=== PATIENT | female | born 1930 | race Caucasian/White ===

== ENCOUNTER 2016-10-08 13:30 | Emergency (ER) | payer OTHER ==
[~2016-10-08] VITALS: Ht 160 cm; Wt 74.4 kg
[2016-10-08 13:30] VITALS: BP 151/76; PULSE 60; RESP 16; TEMP 97.9; O2SAT 99
[~2016-10-08 13:30] MED LIST: ASA81 PO
--- NOTE | 2016-10-08 13:30 | NUR ---
Placed in room 3 . Placed on front desk monitor, blood pressure machine and pulse oximeter. To gown for exam. Side rails up.
--- NOTE | 2016-10-08 13:30 | NUR ---
BIB ALS SQ 64, c/o chest pain, shoulder pain started 4 days ago after vacuuming.pt AAOX4, pleaseant,no distress . pain 02/07. pt took 81mg ASA at home.
--- NOTE | 2016-10-08 13:30 | NUR ---
ER at bedside examining patient.
--- NOTE | 2016-10-08 13:42 | NUR ---
ER at bedside examining patient.
--- NOTE | 2016-10-08 13:46 | NUR ---
# 20 gauge angiocath placed to RFA. Use of asceptic technique. Opsite placed over site. Blood return noted. Blood for lab drawn from site. Flushed with 10 cc of normal saline. No evidence of infiltration noted. Patient tolerated well.
[2016-10-08 14:01] LABS: BASOPHILS % (AUTO) 0.6 % (0.0-2.0); HEMATOCRIT 35.8 % (36-48); HEMOGLOBIN 11.8 g/dL (12.0-16.0); LYMPHOCYTES # (AUTO) 1.2 K/uL (1.0-5.5); LYMPHOCYTES % (AUTO) 26.4 % (20.5-51.5); MEAN CORPUSCULAR HEMOGLOBIN 31 pg (27-31); MEAN CORPUSCULAR HGB CONC 33 % (32-36); MEAN CORPUSCULAR VOLUME 93 fL (79.0-98.0); MONOCYTES # (AUTO) 0.5 K/uL (0.0-1.0); MONOCYTES % (AUTO) 11.4 % (1.7-9.3); NEUTROPHILS % (AUTO) 60.6 % (40.0-70.0); PLATELET COUNT (AUTO) 152 K/uL (130-430); RED BLOOD CELL COUNT(AUTO) 3.85 MIL/uL (4.2-6.2); RED CELL DISTRIBUTION WIDTH 13.7 % (9.0-15.0); WHITE BLOOD COUNT (AUTO) 4.7 K/uL (4.8-10.8)
[2016-10-08 14:05] LABS: ANION GAP 6 (5-15); CALCIUM 9.2 mg/dL (8.4-11.0); CHLORIDE 108 mmol/L (98-107); CREATININE 0.58 mg/dL (0.55-1.30); GLUCOSE 87 mg/dL (70-99); POTASSIUM 3.8 mmol/L (3.5-5.1); SODIUM SERUM 140 mmol/L (136-145); UREA NITROGEN, BLOOD 15 mg/dL (8-21)
[2016-10-08 14:09] LABS: ALANINE AMINOTRANSFERASE 24 U/L (12-78); ALBUMIN 3.8 g/dL (3.4-4.8); ASPARTATE AMINOTRANSFERASE 21 U/L (10-37); CREATINE KINASE, TOTAL 44 U/L (26-192); TOTAL BILIRUBIN 0.6 mg/dL (0.0-1.0); TOTAL PROTEIN, SERUM 7.1 g/dL (6.4-8.3)
[2016-10-08 14:10] LABS: PROTHROMBIN TIME 11.2 SECS (9.5-12.5)
--- NOTE | 2016-10-08 14:30 | NUR ---
assits pt to the restroom.urine collected.
[2016-10-08 14:55] LABS: BILIRUBIN,URINE NEGATIVE (NEGATIVE); CLARITY/URINE CLEAR (CLEAR); COLOR,URINE YELLOW (YELLOW); GLUCOSE,URINE NEGATIVE (NEGATIVE); KETONES,URINE NEGATIVE (NEGATIVE); LEUKOCYTE ESTERASE ,URINE 1+ (NEGATIVE); NITRITE, URINE NEGATIVE (NEGATIVE); PROTEIN URINE NEGATIVE (NEGATIVE); UROBILINOGEN,URINE 0.2 (0.2-1.0)
[2016-10-08 14:59] LABS: BLOOD, URINE TRACE (NEGATIVE)
[2016-10-08 15:15] LABS: BACTERIA,URINE RARE /HPF (None Seen)
[2016-10-08] MEDS ORDERED: cefTRIAXone 1 GM IVPB PREMIX 50 ML IV ONE (15:45)
[2016-10-08] MEDS ORDERED: ASA81 PO (15:51)
--- NOTE | 2016-10-08 16:03 | NUR ---
resting in bed,no distress
--- NOTE | 2016-10-08 16:14 | NUR ---
rocephin IVPB completed. no adverse reation.
--- NOTE | 2016-10-08 16:45 | NUR ---
Dr morgan at bedside examing pt.
--- NOTE | 2016-10-08 17:00 | NUR ---
pt able to ambulate with her own cruches without difficulty.gaits are steady
--- NOTE | 2016-10-08 17:37 | NUR ---
Patient given written and verbal discharge instructions and verbalizes understanding. ER MD discussed with patient the results and treatment provided. Given copies of tests performed in ER. Patient in stable condition. ID arm band removed. IV catheter removed intact and dressing applied, no active bleeding. Rx of KEFLEX given. Patient educated on pain management and to follow up with PMD. Pain Scale . Opportunity for questions provided and answered.
[2016-10-08 17:42] VITALS: BP 146/72; PULSE 54; RESP 17; TEMP 97.9; O2SAT 99
--- NOTE | 2016-10-11 08:52 | NUR ---
RECEIVED FINAL URINE CULTURE, PT WAS GIVEN ANTIBIOTICS THAT PT WAS SENSITIVE TO. NO FURTHER ACTIONS NEEDED.
== END 2016-10-08 17:38 | disposition home or self-care (01) ==
LOC: SED 13:30
DX: N39.0 Urinary tract infection, site not specified (principal)
CPT/HCPCS: 36415; 71010; 80053; 81000; 82550; 83605; 83880; 84443; 84484; 85025; 85610; 85730; 87040; 87086; 87186; 93005; 96365; 99285; J0696

== ENCOUNTER 2016-10-14 16:56 | Inpatient (IN) | payer OTHER ==
[~2016-10-14] VITALS: Ht 170.2 cm; Wt 78.9 kg
--- NOTE | 2016-10-14 15:38 | NUR ---
Admission Note Received patient from ER with diagnosis of ALOC, HALLUCINATION. Initial Plan of Care discussed-patient verbalized understanding. Family at bedside. Oriented to room, call light, pain management and safety.
--- NOTE | 2016-10-14 16:56 | NUR ---
Placed in room 1 . Placed on cardiac exercise specialist, blood pressure machine and pulse oximeter. To gown for exam. Side rails up. Report given to Claudia.
--- NOTE | 2016-10-14 16:56 | NUR ---
ER at bedside examining patient.
--- NOTE | 2016-10-14 17:00 | NUR ---
PT. TO THE ER AAOx4 BROUGHT IN VIA EMS, PER EMS PT. CALLED 911 MAKING SOME STATEMENT ABOUT HER DOGS AND HOME SITUATION, PT. STATES NO COMPLAINTS, ABLE TO FOLLOW COMMANDS, ABLE TO COMMUNICATE WELL WITH SCATTERED THOUGHTS, CLEAR SPEECH, NO DISTRESS NOTED
[2016-10-14 17:14] VITALS: BP 137/63; PULSE 68; RESP 15; TEMP 98; O2SAT 100
--- NOTE | 2016-10-14 17:15 | NUR ---
# 22 gauge angiocath placed to LAC. Use of asceptic technique. Opsite placed over site. Blood return noted. Flushed with 10 cc of normal saline. No evidence of infiltration noted. Patient tolerated well.
--- NOTE | 2016-10-14 17:26 | NUR ---
Spoke with Dr. Wilson' PA who stated pt has history, spinal tumor, 2 months ago orbital fx information relayed to Dr. Lew and Primary nurse
[2016-10-14 17:33] LABS: BASOPHILS % (AUTO) 0.2 % (0.0-2.0); EOSINOPHILS % (AUTO) 0.5 % (0.0-4.0); HEMOGLOBIN 12.1 g/dL (12.0-16.0); LYMPHOCYTES # (AUTO) 0.8 K/uL (1.0-5.5); LYMPHOCYTES % (AUTO) 10.4 % (20.5-51.5); MEAN CORPUSCULAR HEMOGLOBIN 30 pg (27-31); MEAN CORPUSCULAR HGB CONC 33 % (32-36); MEAN CORPUSCULAR VOLUME 91 fL (79.0-98.0); MONOCYTES # (AUTO) 0.6 K/uL (0.0-1.0); MONOCYTES % (AUTO) 7.2 % (1.7-9.3); NEUTROPHILS # (AUTO) 6.7 K/uL (1.8-7.7); NEUTROPHILS % (AUTO) 81.7 % (40.0-70.0); PLATELET COUNT (AUTO) 209 K/uL (130-430); RED BLOOD CELL COUNT(AUTO) 4.08 MIL/uL (4.2-6.2); RED CELL DISTRIBUTION WIDTH 12.8 % (9.0-15.0); WHITE BLOOD COUNT (AUTO) 8.1 K/uL (4.8-10.8)
[2016-10-14 17:44] LABS: ANION GAP 16 (5-15); CALCIUM 9.4 mg/dL (8.4-11.0); CHLORIDE 104 mmol/L (98-107); CREATININE 0.56 mg/dL (0.55-1.30); GLUCOSE 81 mg/dL (70-99); POTASSIUM 3.3 mmol/L (3.5-5.1); SODIUM SERUM 142 mmol/L (136-145); UREA NITROGEN, BLOOD 13 mg/dL (8-21)
[2016-10-14 17:49] LABS: ALANINE AMINOTRANSFERASE 50 U/L (12-78); ALBUMIN 3.8 g/dL (3.4-4.8); ASPARTATE AMINOTRANSFERASE 88 U/L (10-37); TOTAL BILIRUBIN 0.8 mg/dL (0.0-1.0); TOTAL PROTEIN, SERUM 7.7 g/dL (6.4-8.3)
[2016-10-14 17:50] LABS: ALCOHOL, BLOOD < 3 mg/dL (<10); INR 1.1 (0.8-1.2); PROTHROMBIN TIME 11.8 SECS (9.5-12.5)
--- NOTE | 2016-10-14 18:00 | NUR ---
# 14 FR In and Out catheter with use of sterile technique. Immediate return of 200 ml YELLOW urine noted. Urine sample collected and sent to lab. Pt tolerated procedure WELL.
[2016-10-14 18:06] LABS: ACETAMINOPHEN < 1 ug/mL (1-30); SALICYLATE 1 mg/dL (3-30)
[2016-10-14 18:42] LABS: BILIRUBIN,URINE 1+ (NEGATIVE); BLOOD, URINE 1+ (NEGATIVE); CLARITY/URINE CLEAR (CLEAR); COLOR,URINE YELLOW (YELLOW); GLUCOSE,URINE NEGATIVE (NEGATIVE); KETONES,URINE 3+ (NEGATIVE); LEUKOCYTE ESTERASE ,URINE NEGATIVE (NEGATIVE); NITRITE, URINE NEGATIVE (NEGATIVE); PH,URINE 5.5 (5.0-8.0); PROTEIN URINE 1+ (NEGATIVE)
--- NOTE | 2016-10-14 18:49 | NUR ---
PT. OUT TO RADIOLOGY [facility]IA [facility] WITH NIL[facility]
--- NOTE | 2016-10-14 18:50 | NUR ---
ANDREW FROM [facility] CALLED STATED TO LET PT. KNOW PT.'S DOGS ARE WITH HER LEFT PHONE NUMBER [phone]
[2016-10-14 18:52] LABS: BARBITURATE, URINE NEGATIVE (NEG <=200); BENZODIAZEPINE, URINE NEGATIVE (NEG <=150); CANNABINOID, URINE NEGATIVE (NEG <=50); COCAINE, URINE NEGATIVE (NEG <=150); METHAMPHETAMINES SCREEN,URINE NEGATIVE (NEG <=500); OPIATE, URINE NEGATIVE (NEG <=100); PHENCYCLIDINE SCREEN,URINE NEGATIVE (NEG <=25); UR TRICYCLIC ANTIDEPRESSANTS NEGATIVE (NEG <=300); URINE AMPHETAMINE NEGATIVE (NEG <=500); URINE METHADONE NEGATIVE (NEG <=200); URINE OXYCODONE SCREEN NEGATIVE (NEG <=100); URINE PROPOXYPHENE SCREEN NEGATIVE (NEG <=300)
[2016-10-14 18:56] LABS: BACTERIA,URINE RARE /HPF (None Seen); WBC,URINE 0-3 /HPF (0-3)
[2016-10-14 18:57] LABS: URINE AMORPHOUS URATE 1+ /HPF (None Seen)
--- NOTE | 2016-10-14 19:01 | NUR ---
PT. BACK FROM RADIOLOGY [facility]IA [facility]
--- NOTE | 2016-10-14 20:00 | NUR ---
Patient will be admitted to care of DR. MCHUGH. Admitted to MEDSURG unit. Will go to room 135. Summary report printed. Report given to KORY GONZALES.
--- NOTE | 2016-10-14 20:10 | NUR ---
CONSULTATION PAGED REASON FOR CONSULTATION:ALOC WAS CONSULT CALLED?Y PERSON WHO WAS NOTIFIED:AGUEDA CONSULTING PHYSICIAN:BERENICE BERNAL SANITIZER SPECIALTY:NEURO SANITIZER PHONE NUMBER:[phone]
[2016-10-14 20:15] VITALS: BP 132/64; PULSE 70; RESP 18; TEMP 97; O2SAT 96
--- NOTE | 2016-10-14 21:00 | NUR ---
initial nursing notes: Patient is awake. Patient has episodes of forgetfulness. Reoriented patient as needed. Patient has an IV access on the left forearm. Patient has redness, abrasion and dry scab on bilateral elbows and around the eyes. Encouraged patient to use call light when getting out of the bed. Patient demonstrated proper use of call light.
[2016-10-14 21:11] VITALS: BP 134/72; PULSE 71; RESP 16; TEMP 97.9; O2SAT 99
--- NOTE | 2016-10-14 21:50 | NUR ---
CONSULTATION PAGED REASON FOR CONSULTATION:ALOC, HALLUCINATION WAS CONSULT CALLED?Y PERSON WHO WAS NOTIFIED:AGUEDA CONSULTING PHYSICIAN:,SAID JAVA DEVELOPER CONSULTANT SPECIALTY:PSYCH JAVA DEVELOPER CONSULTANT PHONE NUMBER:[phone]
--- NOTE | 2016-10-14 23:00 | NUR ---
nursing rounds: Patient ate dinner. No difficulty in swallowing noted.
[2016-10-15] VITALS (11 sets, daily range): BP systolic 87–131; BP diastolic 42–62; PULSE 60–75; RESP 16–20; TEMP 97.2–99; O2SAT 94–100
--- NOTE | 2016-10-15 01:00 | NUR ---
nursing rounds: Patient is asleep. Patient has no shortness of breath.
--- NOTE | 2016-10-15 03:00 | NUR ---
nursing rounds: Patient calmly resting in bed. Patient has no respiratory distress.
--- NOTE | 2016-10-15 05:00 | NUR ---
nursing rounds: Patient calmly resting in bed. Call light within patient's reach.
--- NOTE | 2016-10-15 07:33 | NUR ---
Nutrition Update Saeid Scale 15 noted. Pt admitted for ALOC, hallucination. Diet: 2 gm Na BMI: 27.3 kg/m2 RD to follow per nutrition care standards.
--- NOTE | 2016-10-15 07:40 | NUR ---
closing nursing notes: Patient is awake, alert and oriented to name and place. Patient is in no acute respiratory distress. No episodes of fall and no injuries throughout the brake tester. Provided nursing report to incoming morning shift nurse, CHRISTIAN Javed, at patient's bedside.
--- NOTE | 2016-10-15 07:45 | NUR ---
am rounds change of shift, awake, alert, oriented to room and date, instructed on use of call light and bed control. denies any discomfort at this time.on fall risk, bed alarm on.
--- NOTE | 2016-10-15 08:00 | NUR ---
schedule for MRI of the head, went over checklist and signed. sat up for breakfast.needs attended.
[2016-10-15] MEDS: ASPIRIN 81 MG TAB.CHEW PO SCH (09:18)
[2016-10-15] MEDS: QUEtiapine FUMARATE 25 MG TABLET PO SCH ×2 (09:20→14:59)
--- NOTE | 2016-10-15 10:12 | NUR ---
Notes Patient's lens implant identification card has been copied and placed in chart. dietetic technician registered has been informed.
[2016-10-15] MEDS ORDERED: GADOPENTETATE DIMEGLUMINE 15 ML VIAL IV ONE (10:38)
--- NOTE | 2016-10-15 10:39 | NUR ---
Notes Patient taken to MRI. No acute distress noted.
--- NOTE | 2016-10-15 11:35 | NUR ---
ROUNDS: PT. CAME BACK FROM MRI, AWAKE, ALERT. DENIES ANY PAIN.
--- NOTE | 2016-10-15 13:33 | NUR ---
Notes Dr. Mac has seen patient. Plan of care reviewed. No acute distress noted at this time.
--- NOTE | 2016-10-15 14:50 | NUR ---
NOTES: pt.sleeping and awakened for due med.
--- NOTE | 2016-10-15 14:52 | NUR ---
Notes Encouraged patient to continue high oral intake of fluids in order to flush out contrast used for MRI. Patient acknowledged understanding
--- NOTE | 2016-10-15 16:46 | NUR ---
N ot Addendum: 10/15/16 at 1647 by Tello Webber RN Entered in error
--- NOTE | 2016-10-15 16:47 | NUR ---
Notes Dr. Mac has been paged to inform of low blood pressure.
--- NOTE | 2016-10-15 18:14 | NUR ---
Notes Dr. Mac has been paged a second time to inform of blood pressure.
--- NOTE | 2016-10-15 18:22 | NUR ---
paged for Dr Mac, dialed . s/w Krzysztof.
--- NOTE | 2016-10-15 18:40 | NUR ---
NOTES: Dr. Dunlap called back and spoke to nurse Javed and informed MD about the low blood pressure with orders , will give IV NS 500 ml bolus and will place on telemetry. pt. informed.
--- NOTE | 2016-10-15 18:50 | NUR ---
CLOSING NOTES: placed on monitor and storage bin tender and shows sinus rhythm.IV bolus of NS infusing.continue to monitor BP. Latest BP 90/43 hr 74.
--- NOTE | 2016-10-15 18:50 | NUR ---
Notes Spoke with Dr. Mac, informed him of low blood pressure. TO for Normal Saline 500 ml Bolus IV and change patient to Telemetry given. Patient continues to asymptomatic, responds appropriately to questions, no change in status from this morning. Will continue to monitor until patient care is endorsed to oncoming shift nurse.
[2016-10-15] MEDS ORDERED: NS 500 ML IV ONE ×2 (19:00→20:45)
--- NOTE | 2016-10-15 19:15 | NUR ---
NOTES: endorsed pt. to incoming nurse Rosa Maria.continue to observe and monitor BP.
--- NOTE | 2016-10-15 19:40 | NUR ---
INITIAL NOTE PT. RECEIVED AAOX3. NO S.S OF SOB OR DISTRESS. SINUS RHYTHM SHOWS ON THE MONITOR. BP IS LOW, 92/42, IV BOLUS INFUSING AT THIS TIME ORDERED TO ELEVATE BP. IV ACCESS TO LFA. NO REDNESS OR SWELLING AT THE SITE. PLAN OF CARE DISCUSSED WITH PT., VERBALIZES UNDERSTANDING. WILL CONTINUE TO MONITOR FOR ANY CHANGES. SAFETY AND FALL PRECAUTIONS IN PLACE. CALL LIGHT IN REACH, BED ALARM ON.
--- NOTE | 2016-10-15 20:30 | NUR ---
paged for Dr Mac, dialed . s/w Satnam.
--- NOTE | 2016-10-15 20:31 | NUR ---
MD CALL PAGED DR. ERAZO TO INFORM HIM THAT PT. BP REMAINS LOW (81/64) FOLLOWING BOLUS AND PLACING PT. IN TRENDELENBERG POSITION. PT. IS SLEEPING AT THIS TIME. DR. ERAZO GAVE ORDERS TO INFUSE ANOTHER 1/2 LITER AND OBTAIN AN ECHO. WILL CARRY OUT.
[2016-10-15] MEDS ORDERED: QUEtiapine FUMARATE 25 MG TABLET PO SCH (21:00)
--- NOTE | 2016-10-15 22:05 | NUR ---
ROUNDS ASSISTED PT. TO USE THE BEDPAN. NO S/S OF SOB OR DISTRESS. PT. DENIES PAIN AT THIS TIME. BLOOD PRESSURE WITHIN NORMAL RANGE FOLLOWING ADMINISTRATION OF SECOND IV BOLUS. WILL CONTINUE TO MONITOR FOR ANY CHANGES. SAFETY AND FALL PRECAUTIONS IN PLACE. CALL LIGHT IN REACH, BED ALARM ON.
[2016-10-16] VITALS (7 sets, daily range): BP systolic 104–140; BP diastolic 54–81; PULSE 66–75; RESP 18–20; TEMP 97.9–99; O2SAT 96–100
--- NOTE | 2016-10-16 00:10 | NUR ---
ROUNDS PT. RESTING IN BED WITH EYES CLOSED. CHEST RISE AND FALL NOTED. NO S/S OF SOB OR DISTRESS NOTED. NO FACIAL GRIMACING INDICATING PAIN. PT. TO REMAIN NPO PAST MIDNIGHT FOR ABDOMINAL ULTRASOUND IN AM. WILL CONTINUE TO MONITOR FOR ANY CHANGES. SAFETY AND FALL PRECAUTIONS IN PLACE, CALL LIGHT IN REACH.
--- NOTE | 2016-10-16 02:02 | NUR ---
ROUNDS PT. RESTING IN BED WITH EYES CLOSED. CHEST RISE AND FALL NOTED. NO S/S OF SOB OR DISTRESS NOTED. NO FACIAL GRIMACING INDICATING ANY PAIN. WILL CONTINUE TO MONITOR FOR ANY CHANGES. SAFETY AND FALL PRECAUTIONS IN PLACE. CALL LIGHT IN REACH, BED ALARM ON.
--- NOTE | 2016-10-16 06:28 | NUR ---
CLOSING NOTE PT. IS RESTING IN BED WITH EYES CLOSED, CHEST RISE AND FALL NOTED. NO S/S OF SOB OR DISTRESS, NO FACIAL GRIMACING INDICATING PAIN. PT. BP REMAINED STABLE FOLLOWING IV BOLUS. NPO STATUS MAINTAINED PAST MIDNIGHT FOR ABDOMINAL ULTRASOUND. SAFETY AND FALL PRECAUTIONS WERE MAINTAINED. WILL ENDORSE CARE TO AM NURSE. CALL LIGHT IN REACH, BED ALARM ON.
--- NOTE | 2016-10-16 08:00 | NUR ---
AM NOTES: RECEIVED PT AT 0725, AWAKE/ALERT, TALKING TO HERSELF, ON ROOM, ORIENTED TO HERSELF, ON NSR, VOIDS, NPO FOR U/S ABDOMEN, TO CONTINUE TO MONITOR CLOSELY.
[2016-10-16] MEDS: ASPIRIN 81 MG TAB.CHEW PO SCH (09:13)
[2016-10-16] MEDS: QUEtiapine FUMARATE 25 MG TABLET PO SCH ×2 (09:14→14:19)
--- NOTE | 2016-10-16 10:00 | NUR ---
NURSE: PT WAS SEEN BY DR ERAZO THIS AM, DOWNGRADED HER TO MED-SURG, TO CONTINUE TO MONITOR.
--- NOTE | 2016-10-16 12:00 | NUR ---
NURSE; RESUMED DIET FOR THE PT.
--- NOTE | 2016-10-16 14:40 | NUR ---
NURSE: DR DWYER SAID IT IS OK FOR HIM TO DISCHARGE THE PT, WE CALLED DR ERAZO AND HE ORDERED THAT THE PT CAN BE DISCHARGE TO A SNF, CALLED FRANCISCO J HER NIECE AND INFORMED HER ABOUT THE DISCHARGED, PT IS ALSO AGREEABLE WITH THE DISCHARGE, I ASK HER ABOUT HER SON, SHE SAID NOT TO CALL HER SON TO TELL ABOUT HER SITUATION.
--- NOTE | 2016-10-16 14:50 | NUR ---
NURSE: MISS HERNANDEZ, WHO WAS IN THE PT'S FACE SHEET WAS AT BEDSIDE, SHE IS AWARE OF THE TRANSFER.
--- NOTE | 2016-10-16 18:00 | NUR ---
NURSE: PT IS FOR DISCHARGE TO [place], REPORT WAS GIVEN TO RN CARLITOS, AMBULANCE REGISTRY NP TIME IS AT 1944.
--- NOTE | 2016-10-16 20:17 | NUR ---
Discharge Information Discharge information and paperwork reviewed and discussed with conservator at bedside Lizzie Renee. All paperwork signed, and acknowledged. VSS: Temp 99.0, BP 120/67, Heart rate 75, O2 saturation 98% on room air, O/10 pain level. Pt is in stable condition upon discharge, and is cooperative. Informed conservator to make appointment to see Neurologist Brian and phone number was provided and highlighted in discharge packet. IV discontinues, and ID arm band. [facility] with pt at this time, vitals provided, report given. All needs met. Belongings list completed, and all belongings sent with patients kunal Samuel. Addendum: 10/16/16 at 2106 by Gabrielle Castillo LVN IV discontinued and ID arm band
== END 2016-10-16 20:27 | DRG 885 ==
LOC: SED 16:56 → SMU 19:40 → OBSVTOIN 19:40 → SMU 20:00 → STU 10-15 23:19 → SMU 10-16 11:16
PROVIDERS: ATTEND Internal Medicine Hospice and Palliative Medicine
DX: F23 Brief psychotic disorder (principal); G93.41 Metabolic encephalopathy; F30.9 Manic episode, unspecified; M19.90 Unspecified osteoarthritis, unspecified site; Z79.899 Other long term (current) drug therapy; Z87.820 Personal history of traumatic brain injury; Z88.6 Allergy status to analgesic agent
CPT/HCPCS: 36415; 70450-TC; 70553; 71010; 76700-TC; 80053; 80307; 81000-TC; 82607; 84443-TC; 84484; 85025; 85610-TC; 85730-TC; 93005; 93306; 99285; A9579; G0480; G0481; G0482; J7040

== ENCOUNTER 2020-09-22 15:07 | Inpatient (IN) | payer OTHER, SELFPAY ==
[~2020-09-22] VITALS: Ht 157.5 cm; Wt 64.0 kg
[2020-09-22 15:11] VITALS: BP_SYST 126
[2020-09-22] MEDS ORDERED: SIMV20TA2 PO (15:12)
[2020-09-22] MEDS ORDERED: ASPI-1155 PO (15:12)
[2020-09-22] MEDS ORDERED: POLY17PO4 PO (15:12)
[2020-09-22] MEDS ORDERED: DOCU-144 PO (15:12)
[2020-09-22] MEDS ORDERED: FURO-150 PO (15:12)
[2020-09-22] MEDS ORDERED: PRO40 PO (15:12)
[2020-09-22 16:20] LABS: BASOPHILS % (AUTO) 0.7 % (0.0-2.0); EOSINOPHILS # (AUTO) 0.1 K/uL (0.0-0.4); EOSINOPHILS % (AUTO) 2.1 % (0.0-4.0); HEMATOCRIT 32.6 % (36-48); HEMOGLOBIN 10.9 g/dL (12.0-16.0); LYMPHOCYTES # (AUTO) 1.1 K/uL (1.0-5.5); LYMPHOCYTES % (AUTO) 18.5 % (20.5-51.5); MEAN CORPUSCULAR HEMOGLOBIN 30 pg (27-31); MEAN CORPUSCULAR HGB CONC 34 % (32-36); MEAN CORPUSCULAR VOLUME 91 fL (79.0-98.0); MONOCYTES # (AUTO) 0.6 K/uL (0.0-1.0); MONOCYTES % (AUTO) 9.5 % (1.7-9.3); NEUTROPHILS # (AUTO) 4.2 K/uL (1.8-7.7); NEUTROPHILS % (AUTO) 69.2 % (40.0-70.0); PLATELET COUNT (AUTO) 194 K/uL (130-430)
[2020-09-22 16:36] LABS: ANION GAP 2 (5-15); CALCIUM 9.5 mg/dL (8.4-11.0); CHLORIDE 107 mmol/L (98-107); CREATININE 0.73 mg/dL (0.55-1.30); GLUCOSE 100 mg/dL (70-99); POTASSIUM 4.5 mmol/L (3.5-5.1); SODIUM SERUM 141 mmol/L (136-145); UREA NITROGEN, BLOOD 20 mg/dL (8-21)
[2020-09-22 16:47] LABS: ALANINE AMINOTRANSFERASE 37 U/L (12-78); ALBUMIN 2.8 g/dL (3.4-4.8); ASPARTATE AMINOTRANSFERASE 28 U/L (10-37); TOTAL BILIRUBIN 0.3 mg/dL (0.0-1.0)
[2020-09-22 16:58] LABS: BILIRUBIN,URINE NEGATIVE (NEGATIVE); BLOOD, URINE TRACE (NEGATIVE); CLARITY/URINE SL CLOUDY (CLEAR); COLOR,URINE YELLOW (YELLOW); GLUCOSE,URINE NEGATIVE (NEGATIVE); KETONES,URINE NEGATIVE (NEGATIVE); LEUKOCYTE ESTERASE ,URINE 3+ (NEGATIVE); NITRITE, URINE POSITIVE (NEGATIVE); PH,URINE 7.5 (5.0-8.0); PROTEIN URINE NEGATIVE (NEGATIVE); UROBILINOGEN,URINE 0.2 (0.2-1.0)
[2020-09-22 17:10] LABS: BACTERIA,URINE MANY /HPF (None Seen); WBC,URINE >100 /HPF (0-3)
[2020-09-22 17:11] LABS: MUCUS,URINE None Seen /LPF (None Seen); URINE AMORPHOUS PHOSPHATES 1+ /HPF (None Seen)
[2020-09-22 17:13] LABS: PROTHROMBIN TIME 10.4 SECS (9.5-12.5)
[2020-09-22] MEDS ORDERED: ACETAMINOPHEN 325 MG TABLET PO PRN ×2 (17:15→21:30)
[2020-09-22] MEDS ORDERED: MORPHINE 2 MG/ML INJ. SYRINGE IVP PRN (17:15)
[2020-09-22 18:09] VITALS: BP_SYST 169
[2020-09-22 19:00] VITALS: BP_SYST 131
[2020-09-22 20:00] VITALS: BP_SYST 131
[2020-09-22] MEDS ORDERED: LORazepam 2 MG/ML VIAL IVP PRN (21:30)
[2020-09-22] MEDS ORDERED: ONDANSETRON HCL 4 MG/2 ML VIAL IVP PRN (21:30)
[2020-09-22] MEDS: NORMAL SALINE 5 ML DISP.SYRIN IVF SCH (22:30)
[2020-09-23] VITALS: BP_SYST 97
[2020-09-23 06:35] LABS: BASOPHILS % (AUTO) 0.9 % (0.0-2.0); EOSINOPHILS # (AUTO) 0.1 K/uL (0.0-0.4); EOSINOPHILS % (AUTO) 1.9 % (0.0-4.0); HEMATOCRIT 29.7 % (36-48); HEMOGLOBIN 9.9 g/dL (12.0-16.0); LYMPHOCYTES # (AUTO) 1.4 K/uL (1.0-5.5); LYMPHOCYTES % (AUTO) 25.5 % (20.5-51.5); MEAN CORPUSCULAR HEMOGLOBIN 30 pg (27-31); MEAN CORPUSCULAR HGB CONC 33 % (32-36); MEAN CORPUSCULAR VOLUME 91 fL (79.0-98.0); MONOCYTES # (AUTO) 0.6 K/uL (0.0-1.0); NEUTROPHILS # (AUTO) 3.3 K/uL (1.8-7.7); NEUTROPHILS % (AUTO) 60.7 % (40.0-70.0); PLATELET COUNT (AUTO) 170 K/uL (130-430); RED BLOOD CELL COUNT(AUTO) 3.27 MIL/uL (4.2-6.2); RED CELL DISTRIBUTION WIDTH 15.1 % (9.0-15.0); WHITE BLOOD COUNT (AUTO) 5.5 K/uL (4.8-10.8)
[2020-09-23 06:49] LABS: ANION GAP 7 (5-15); CALCIUM 8.6 mg/dL (8.4-11.0); CHLORIDE 109 mmol/L (98-107); CREATININE 0.56 mg/dL (0.55-1.30); GLUCOSE 85 mg/dL (70-99); POTASSIUM 4.1 mmol/L (3.5-5.1); SODIUM SERUM 142 mmol/L (136-145); UREA NITROGEN, BLOOD 15 mg/dL (8-21)
[2020-09-23] MEDS: NORMAL SALINE 5 ML DISP.SYRIN IVF SCH ×3 (06:54→22:46)
[2020-09-23 08:00] VITALS: BP_SYST 95
[2020-09-23] MEDS: DOCUSATE SODIUM 100 MG CAPSULE PO SCH ×2 (08:37→22:45)
[2020-09-23] MEDS: PANTOPRAZOLE SODIUM 40 MG TAB PO SCH (08:37)
[2020-09-23] MEDS: ASPIRIN 81 MG TAB.CHEW PO SCH (08:38)
[2020-09-23] MEDS: FUROSEMIDE 20 MG TABLET PO SCH (08:38)
[2020-09-23] MEDS: ENOXAPARIN SODIUM 30 MG/0.3 ML SYRINGE SUBCUT SCH (08:40)
[2020-09-23] MEDS: POLYETHYLENE GLYCOL 3350, 17 GM/ POWD.PACK PO SCH (08:41)
[2020-09-23] MEDS: D5NS 1,000 ML IV SCH (11:55)
[2020-09-23] MEDS: CIPROFLOXACIN HCL 500 MG TABLET PO SCH ×2 (12:03→22:45)
[2020-09-23 12:27] VITALS: BP_SYST 91
[2020-09-23 16:55] VITALS: BP_SYST 96
[2020-09-23 20:00] VITALS: BP_SYST 94
[2020-09-23] MEDS: SIMVASTATIN 20 MG TABLET PO SCH (22:46)
[2020-09-24 01:28] VITALS: BP_SYST 94
[2020-09-24] MEDS: D5NS 1,000 ML IV SCH ×2 (04:04→23:05)
[2020-09-24] MEDS: NORMAL SALINE 5 ML DISP.SYRIN IVF SCH ×3 (05:07→22:00)
[2020-09-24 06:37] LABS: BASOPHILS % (AUTO) 0.6 % (0.0-2.0); EOSINOPHILS # (AUTO) 0.1 K/uL (0.0-0.4); EOSINOPHILS % (AUTO) 2.1 % (0.0-4.0); HEMOGLOBIN 9.7 g/dL (12.0-16.0); LYMPHOCYTES # (AUTO) 1.4 K/uL (1.0-5.5); LYMPHOCYTES % (AUTO) 21.8 % (20.5-51.5); MEAN CORPUSCULAR HEMOGLOBIN 31 pg (27-31); MEAN CORPUSCULAR HGB CONC 34 % (32-36); MEAN CORPUSCULAR VOLUME 91 fL (79.0-98.0); MONOCYTES # (AUTO) 0.8 K/uL (0.0-1.0); MONOCYTES % (AUTO) 13.5 % (1.7-9.3); NEUTROPHILS # (AUTO) 3.9 K/uL (1.8-7.7); PLATELET COUNT (AUTO) 141 K/uL (130-430); RED BLOOD CELL COUNT(AUTO) 3.17 MIL/uL (4.2-6.2); RED CELL DISTRIBUTION WIDTH 15.2 % (9.0-15.0); WHITE BLOOD COUNT (AUTO) 6.2 K/uL (4.8-10.8)
[2020-09-24 06:44] LABS: CALCIUM 8.3 mg/dL (8.4-11.0); CHLORIDE 109 mmol/L (98-107); CREATININE 0.62 mg/dL (0.55-1.30); GLUCOSE 105 mg/dL (70-99); POTASSIUM 4.1 mmol/L (3.5-5.1); SODIUM SERUM 140 mmol/L (136-145); UREA NITROGEN, BLOOD 15 mg/dL (8-21)
[2020-09-24 07:06] LABS: ANION GAP 4 (5-15)
[2020-09-24 07:59] LABS: ERYTHROCYTE SEDIMENTATION RATE 62 MM/HR (0-20)
[2020-09-24 08:13] VITALS: BP_SYST 120
[2020-09-24] MEDS: DOCUSATE SODIUM 100 MG CAPSULE PO SCH ×2 (08:27→23:03)
[2020-09-24] MEDS: ASPIRIN 81 MG TAB.CHEW PO SCH (08:27)
[2020-09-24] MEDS: PANTOPRAZOLE SODIUM 40 MG TAB PO SCH (08:28)
[2020-09-24] MEDS: FUROSEMIDE 20 MG TABLET PO SCH (08:28)
[2020-09-24] MEDS: POLYETHYLENE GLYCOL 3350, 17 GM/ POWD.PACK PO SCH (08:28)
[2020-09-24] MEDS: CIPROFLOXACIN HCL 500 MG TABLET PO SCH ×2 (08:30→23:03)
[2020-09-24] MEDS: ENOXAPARIN SODIUM 30 MG/0.3 ML SYRINGE SUBCUT SCH (08:30)
[2020-09-24 09:07] LABS: INR 1.1 (0.8-1.2); PROTHROMBIN TIME 10.8 SECS (9.5-12.5)
[2020-09-24 12:23] VITALS: BP_SYST 108
[2020-09-24] MEDS ORDERED: POLYMYXIN 500,000/BACIT.10,000 UNITS in NS IRR 1 L IR ONE (13:50)
[2020-09-24] MEDS ORDERED: ONDANSETRON HCL 4 MG/2 ML VIAL IVP PRN (15:00)
[2020-09-24 16:00] VITALS: BP_SYST 101
[2020-09-24 19:00] VITALS: BP_SYST 120
[2020-09-24] MEDS: SIMVASTATIN 20 MG TABLET PO SCH (23:03)
[2020-09-25 01:05] VITALS: BP_SYST 105
[2020-09-25] MEDS: NORMAL SALINE 5 ML DISP.SYRIN IVF SCH ×3 (07:23→21:41)
[2020-09-25 08:07] VITALS: BP_SYST 110
[2020-09-25] MEDS ORDERED: FUROSEMIDE 20 MG TABLET ONE (08:22)
[2020-09-25] MEDS: DOCUSATE SODIUM 100 MG CAPSULE PO SCH ×2 (08:23→21:41)
[2020-09-25] MEDS: PANTOPRAZOLE SODIUM 40 MG TAB PO SCH (08:23)
[2020-09-25] MEDS: ASPIRIN 81 MG TAB.CHEW PO SCH (08:23)
[2020-09-25] MEDS: POLYETHYLENE GLYCOL 3350, 17 GM/ POWD.PACK PO SCH (08:24)
[2020-09-25] MEDS: ENOXAPARIN SODIUM 30 MG/0.3 ML SYRINGE SUBCUT SCH (08:24)
[2020-09-25] MEDS: FUROSEMIDE 20 MG TABLET PO SCH (08:25)
[2020-09-25] MEDS: CIPROFLOXACIN HCL 500 MG TABLET PO SCH ×2 (10:09→21:41)
[2020-09-25 12:37] VITALS: BP_SYST 99
[2020-09-25 16:00] VITALS: BP_SYST 107
[2020-09-25] MEDS: PIPERACILLIN/TAZO 3.375/DEX-IS 50 ML IV SCH (18:25)
[2020-09-25 20:00] VITALS: BP_SYST 125
[2020-09-25] MEDS: SIMVASTATIN 20 MG TABLET PO SCH (21:41)
[2020-09-26] VITALS: BP_SYST 104
[2020-09-26] MEDS: PIPERACILLIN/TAZO 3.375/DEX-IS 50 ML IV SCH ×2 (00:08→06:22)
[2020-09-26] MEDS: NORMAL SALINE 5 ML DISP.SYRIN IVF SCH ×2 (06:00→14:36)
[2020-09-26 08:00] VITALS: BP_SYST 110
[2020-09-26] MEDS: POLYETHYLENE GLYCOL 3350, 17 GM/ POWD.PACK PO SCH (09:06)
[2020-09-26] MEDS: FUROSEMIDE 20 MG TABLET PO SCH (09:06)
[2020-09-26] MEDS: CIPROFLOXACIN HCL 500 MG TABLET PO SCH (09:06)
[2020-09-26] MEDS: DOCUSATE SODIUM 100 MG CAPSULE PO SCH (09:07)
[2020-09-26] MEDS: ASPIRIN 81 MG TAB.CHEW PO SCH (09:07)
[2020-09-26] MEDS: PANTOPRAZOLE SODIUM 40 MG TAB PO SCH (09:07)
[2020-09-26] MEDS: ENOXAPARIN SODIUM 30 MG/0.3 ML SYRINGE SUBCUT SCH (09:09)
[2020-09-26] MEDS ORDERED: cefTRIAXone 1 GM IVPB PREMIX 50 ML IV SCH (11:00)
[2020-09-26 12:19] VITALS: BP_SYST 98
[2020-09-26 16:08] VITALS: BP_SYST 143
== END 2020-09-26 18:35 | DRG 481 ==
LOC: SED 15:07 → STU 17:12 → SMU 09-26 11:05
PROVIDERS: ADMIT Internal Medicine Hospice and Palliative Medicine; ATTEND Internal Medicine Hospice and Palliative Medicine
PROC: 0QS606Z Reposition Right Upper Femur with Intramedullary Internal Fixation Device, Open Approach (ICD-10-PCS; principal; 2020-09-24 14:00)
DX: S72.141A Displaced intertrochanteric fracture of right femur, initial encounter for closed fracture (principal); N39.0 Urinary tract infection, site not specified; I73.9 Peripheral vascular disease, unspecified; Z86.16 Personal history of COVID-19; Z96.653 Presence of artificial knee joint, bilateral; D64.9 Anemia, unspecified; I44.0 Atrioventricular block, first degree; Z20.822 Contact with and (suspected) exposure to COVID-19; E88.09 Other disorders of plasma-protein metabolism, not elsewhere classified; I50.9 Heart failure, unspecified; W19.XXXA Unspecified fall, initial encounter; Y93.89 Activity, other specified; Y99.8 Other external cause status; Y92.009 Unspecified place in unspecified non-institutional (private) residence as the place of occurrence of the external cause; Z88.2 Allergy status to sulfonamides; Z88.8 Allergy status to other drugs, medicaments and biological substances
CPT/HCPCS: 36415; 71045; 72170-TC; 73030; 73552; 76000; 80048; 80053; 81000-TC; 84484; 85025; 85610-TC; 85651-TC; 85730-TC; 86140; 86886; 86900; 86901; 87081; 87086; 93005; 94010; 97110-GP; 97116-GP; 97530-GP; G0378; J0696; J1650; J2270; J2543